=== PATIENT | male | born 1930 | race Caucasian/White ===

== ENCOUNTER 2018-11-17 20:17 | Emergency (ER) | payer MEDICARE, OTHER ==
[~2018-11-17] VITALS: Ht 177.8 cm; Wt 90.7 kg
--- NOTE | 2018-11-17 20:25 | NUR ---
RT IN ROOM. NT SUCTION PREFORMED BY RT WITH NURSING STAFF ASSISTANCE. PT NOTED TO BE RESTLESS, THRASHING, AND AGITATED WHILE NT SUCTIONING IS BEING PREFORMED.
[2018-11-17 20:35] LABS: BASOPHILS % (AUTO) 0 % (0-10); EOSINOPHILS # (AUTO) 0.1 10^3/uL (0.0-0.3); EOSINOPHILS % (AUTO) 1 % (0-10); HEMATOCRIT 41 % (40-54); HEMOGLOBIN 13.8 G/DL (13.3-17.7); LYMPHOCYTES % (AUTO) 13 % (12-44); MEAN CORPUSCULAR HEMOGLOBIN 33 PG (25-34); MEAN CORPUSCULAR HGB CONC 34 G/DL (32-36); MEAN CORPUSCULAR VOLUME 96 FL (80-99); MEAN PLATELET VOLUME 10.5 FL (7.4-10.4); MONOCYTES # (AUTO) 0.4 X 10^3 (0.0-1.0); MONOCYTES % (AUTO) 5 % (0-12); NEUTROPHILS # (AUTO) 6.4 X 10^3 (1.8-7.8); NEUTROPHILS % (AUTO) 80 % (42-75); PLATELET COUNT 219 10^3/uL (130-400)
--- NOTE | 2018-11-17 20:52 | ED Respiratory ---
General Chief Complaint: Respiratory Problems Stated Complaint: LOW O2 Source: EMS, shelter records Exam Limitations: other (PT WITH SEVERE DEMENTIA--ESSENTIALLY NON-VERBAL-- CONSTANT GUTTERAL NOISES. ) History of Present Illness Date Seen by Provider: Nov 17, 2018 Time Seen by Provider: 20:17 Initial Comments PT ARRIVES VIA EMS FROM INTERMEDIATE PT CHOKED WHILE EATING AT 1740 INTERMEDIATE REPORTEDLY SUCTIONING 80 ML OF MATERIAL FROM PT'S MOUTH/THROAT PT THEN LAID DOWN AND O2 SATS WERE 84%, SO EMS WAS CALLED EMS REPORT THAT WHEN THEY SUCTIONED PT, O2 SATS UP TO 94% ON ROOM AIR, BUT SECRETIONS CONTINUE TO ACCUMULATE IN MOUTH/THROAT NO OTHER INFORMATION IS OBTAINABLE PT IS DNR Allergies and Home Medications Allergies Coded Allergies: No Allergy Information Available (Unverified , 11/17/18) Patient Home Medication List Home Medication List Reviewed: Yes Review of Systems Review of Systems Constitutional: other (UNABLE TO OBTAIN) Respiratory: see HPI Past Azctdum-Nstyvh-Vuotid Hx Patient Social History Recent Foreign Travel: No Contact w/Someone Who Travel: No Past Medical History Surgeries: No (UNKNOWN) Neurological: Yes Dementia, Parkinson's Disease Genitourinary: Yes Bladder Infection Gastrointestinal: Yes Chronic Constipation, Chronic Diarrhea Musculoskeletal: Yes (CHRONIC GENERALIZED PAIN) Arthritis Psychosocial: Yes (SEVERE DEMENTIA) Anxiety, Depression Integumentary: Yes (OPEN WOUND LEFT SHOULDER) Physical Exam Vital Signs - First Documented Capillary Refill : Height: '" Weight: lbs. oz. kg; BMI Method: General Appearance: other (PT AGITATED, AND VERY COMBATIVE ON ATTEMPTS TO SUCTION PT. PT WITH CONSTANT GUTTERAL NOISES, WITH LARGE AMOUNT OF SECRETIONS IN MOUTH/THROAT WITH GURGLING. THIS IS CLEARED WITH SUCTION. ) Respiratory: no respiratory distress, no accessory muscle use, other (UPPER AIRWAY NOISE) Cardiovascular: regular rate, rhythm Gastrointestinal: soft Neurologic/Psychiatric: other (MOVES ALL EXTREMITIES, BUT IS NON-VERBAL/NO FORMED WORDS--ONLY GUTTERAL SOUNDS, AND DOES NOT FOLLOW COMMANDS. AGITATED AND COMBATIVE WITH SUCTIONING. ) Skin: normal color, warm/dry Progress/Results/Core Measures Suspected Sepsis SIRS Temperature: Pulse: Respiratory Rate: Laboratory Tests 11/17/18 20:18: White Blood Count 8.0 Blood Pressure / Mean: Laboratory Tests 11/17/18 20:18: Creatinine 0.87, Platelet Count 219 Results/Orders Lab Results Laboratory Tests Test 11/17/18 20:18 Range/Units White Blood Count 8.0 4.3-11.0 10^3/uL Red Blood Count 4.22 L 4.35-5.85 10^6/uL Hemoglobin 13.8 13.3-17.7 G/DL Hematocrit 41 40-54 % Mean Corpuscular Volume 96 80-99 FL Mean Corpuscular Hemoglobin 33 25-34 PG Mean Corpuscular Hemoglobin Concent 34 32-36 G/DL Red Cell Distribution Width 14.0 10.0-14.5 % Platelet Count 219 130-400 10^3/uL Mean Platelet Volume 10.5 H 7.4-10.4 FL Neutrophils (%) (Auto) 80 H 42-75 % Lymphocytes (%) (Auto) 13 12-44 % Monocytes (%) (Auto) 5 0-12 % Eosinophils (%) (Auto) 1 0-10 % Basophils (%) (Auto) 0 0-10 % Neutrophils # (Auto) 6.4 1.8-7.8 X 10^3 Lymphocytes # (Auto) 1.0 1.0-4.0 X 10^3 Monocytes # (Auto) 0.4 0.0-1.0 X 10^3 Eosinophils # (Auto) 0.1 0.0-0.3 10^3/uL Basophils # (Auto) 0.0 0.0-0.1 10^3/uL Sodium Level 143 135-145 MMOL/L Potassium Level 3.9 3.6-5.0 MMOL/L Chloride Level 106 98-107 MMOL/L Carbon Dioxide Level 24 21-32 MMOL/L Anion Gap 13 5-14 MMOL/L Blood Urea Nitrogen 21 H 7-18 MG/DL Creatinine 0.87 0.60-1.30 MG/DL Estimat Glomerular Filtration Rate > 60 BUN/Creatinine Ratio 24 Glucose Level 176 H 70-105 MG/DL Calcium Level 9.5 8.5-10.1 MG/DL My Orders Orders - TISH CARRERA DO Saline Lock/Iv-Start (11/17/18 20:24) O2 (11/17/18 20:24) Monitor-Rhythm Ecg Trace Only (11/17/18 20:24) Chest 1 View, Ap/Pa Only (11/17/18 20:24) Basic Metabolic Panel (11/17/18 20:24) Cbc With Automated Diff (11/17/18 20:24) Rt Request For Service (11/17/18 20:24) Piperacillin Sodium/Tazobactam (Zosyn Vi (11/17/18 21:30) Lorazepam Injection (Ativan Injection) (11/17/18 22:30) Medications Given in ED Current Medications Medications Dose Ordered Sig/Raimundo Route Start Time Stop Time Status Last Admin Dose Admin Lorazepam 0.5 mg ONCE ONCE IVP 11/17/18 22:30 11/17/18 22:31 DC 11/17/18 22:31 0.5 MG Piperacillin Sod/ Tazobactam Sod 4.5 gm/Sodium Chloride 100 ml @ 200 mls/hr ONCE ONCE IV 11/17/18 21:30 11/17/18 21:59 DC 11/17/18 21:40 200 MLS/HR Vital Signs/I&O 11/17/18 11/17/18 11/17/18 20:18 20:18 23:00 Temp 96.9 96.9 Pulse 127 95 Resp 28 20 B/P (MAP) 112/70 (84) 98/75 (83) Pulse Ox 98 98 95 O2 Delivery Nasal Cannula Nasal Cannula Nasal Cannula O2 Flow Rate 5.00 5.00 5.00 11/18/18 00:00 Intake Total 100 ml Balance 100 ml Capillary Refill : Progress Note : Progress Note ORAL SUCTIONING DONE WITH TEMPORARY IMPROVEMENT IN GURGLING RT STAFF DID NT SUCTIONING WITH IMPROVEMENT PT REQUIRED SUCTIONING MULTIPLE TIMES DURING ER STAY SIGNIFICANT COMBATIVENESS AND YELLING DURING SUCTIONING--PT DOES MAKE A FEW INTELLIGIBLE WORDS WITH EXTREME AGITATION. PT CALMED WHEN LEFT ALONE O2 SATS IN MID 90'S ON O2 AT 2L/NC Diagnostic Imaging Comments CXR--CARDIOMEGALY WITH MILD CENTRAL VASCULAR CONGESTION--PER RADIOLOGIST REPORT @ 2131 Reviewed: Reviewed by Me Departure Communication (Admissions) THIS FACILITY IS CURRENTLY ON DIVERSION 2154--SPOKE WITH DR. PERSON, HOSPITALIST [employer] IN[employer] REPAIRER. THERE ARE BEDS AVAILABLE AT [facility], AND THIS PT WOULD BE ACCEPTABLE FOR ADMIT THERE. SHE ACCEPTS PT FOR ADMIT THERE. 2199--SPOKE WITH PT'S BROTHER, YOLANDA APODACA, AND INFORMED HIM OF PT'S CONDITION AND OF TRANSFER TO [facility]. Impression Primary Impression: Aspiration into respiratory tract Additional Impressions: Hypoxia Dementia Disposition: 02 XFER SHT-TRM HOSP Condition: Stable Departure-Patient Inst. Referrals: ANGIE OCHOA MD (PCP/Family) Primary Care Physician TISH CARRERA DO Nov 17, 2018 20:52
[2018-11-17 20:55] LABS: BUN/CREATININE RATIO 24; CALCIUM 9.5 MG/DL (8.5-10.1); CARBON DIOXIDE 24 MMOL/L (21-32); CHLORIDE 106 MMOL/L (98-107); CREATININE SERUM 0.87 MG/DL (0.60-1.30); GFR ESTIMATED > 60; GLUCOSE 176 MG/DL (70-105); POTASSIUM 3.9 MMOL/L (3.6-5.0); SODIUM 143 MMOL/L (135-145)
--- NOTE | 2018-11-17 21:24 | Diagnostic Imaging Report ---
INDICATION: Hypoxia. FINDINGS: There is cardiomegaly. There is minimal venous congestion. Mediastinum is unremarkable. There is no pleural effusion, pneumothorax or pneumonia. IMPRESSION: Cardiomegaly and some minimal central pulmonary venous congestion. Dictated by: Dictated on workstation # [id number]
[2018-11-17] MEDS ORDERED: PIPERACILLIN SODIUM/TAZOBACTAM 4.5 GM in NS (IVPB) 100 ML IV ONE (21:30)
[2018-11-17] MEDS ORDERED: LORazepam INJ 2 MG/ML (ATIVAN) VIAL IVP ONE (22:30)
--- NOTE | 2018-11-17 22:30 | NUR ---
REPORT CALLED TO HOMA DURAN FROM [facility] FOR PT TRANSFER. ROOM# [id number]
[2018-11-17 23:00] VITALS: BP 98/75
== END 2018-11-17 23:00 | disposition short-term general hospital (02) ==
LOC: ER 20:23
DX: T17.900A Unspecified foreign body in respiratory tract, part unspecified causing asphyxiation, initial encounter (principal); R09.02 Hypoxemia; F03.90 Unspecified dementia, unspecified severity, without behavioral disturbance, psychotic disturbance, mood disturbance, and anxiety; G20 Parkinson's disease; F41.9 Anxiety disorder, unspecified; F32.9 Major depressive disorder, single episode, unspecified; Z87.448 Personal history of other diseases of urinary system; Z87.19 Personal history of other diseases of the digestive system
CPT/HCPCS: 36415; 71045; 80048; 85025; 93041; 96365; 96375